=== PATIENT | female | born 1985 | race Caucasian/White ===

== ENCOUNTER 2020-09-15 16:26 | Emergency (ER) | payer BC, MEDICAID ==
[2020-09-15] MEDS ORDERED: Ketorolac 30 MG/ML SDV IVPUSH ONE (16:51)
[2020-09-15] MEDS ORDERED: Lactated Ringers 1,000 ML IV ONE (16:51)
[2020-09-15] MEDS ORDERED: Sodium Chloride 0.9% 10 ML Syringe FLUSH PRN (16:52)
[2020-09-15] MEDS ORDERED: diphenhydrAMINE 50 MG/ML SDV IVPUSH ONE (16:52)
[2020-09-15] MEDS ORDERED: Prochlorperazine 10 MG/2 ML SDV IVPUSH ONE (16:52)
--- NOTE | 2020-09-15 16:54 | EDM.PDOC ---
ED HPI GENERAL MEDICAL PROBLEM - General Chief Complaint: Headache Stated Complaint: MIGRAINE Time Seen by Provider: 09/15/20 16:48 Source of Information: Reports: Patient, RN Notes Reviewed History Limitations: Reports: No Limitations - History of Present Illness INITIAL COMMENTS - FREE TEXT/NARRATIVE: 35-year-old female presents emergency department a complaint of migraine type headache, she states this is typical for her migraine usually when things get this bad she does need emergency room care and treatment. Complains of nausea as well as photophobia usually uses Imitrex at home - Related Data Allergies Allergy/AdvReac Type Severity Reaction Status Date / Time cephalexin [From Keflex] Allergy Edema Verified 09/15/20 16:39 sulfamethoxazole Allergy Edema Verified 09/15/20 16:39 [From Bactrim] trimethoprim [From Bactrim] Allergy Edema Verified 09/15/20 16:39 Home Meds: Home Meds FLUoxetine HCl [Prozac] 09/15/20 [History] Ondansetron [Zofran ODT] 09/15/20 [History] SUMAtriptan [Imitrex] 09/15/20 [History] Topiramate [Topamax] 09/15/20 [History] Past Medical History Neurological History: Reports: Migraines Social & Family History - Tobacco Use Tobacco Use Status *Q: Never Tobacco User ED ROS GENERAL - Review of Systems Review Of Systems: See Below Constitutional: Reports: No Symptoms HEENT: Reports: Eye Pain Respiratory: Reports: No Symptoms Cardiovascular: Reports: No Symptoms Neurological: Reports: Headache - Physical Exam Exam: See Below Exam Limited By: No Limitations General Appearance: Alert, Mild Distress Eye Exam: Bilateral Eye: EOMI, Normal Fundi, Normal Inspection, PERRL Respiratory/Chest: No Respiratory Distress Course - Vital Signs Last Recorded V/S: Last Vital Signs Temp 97.2 F 09/15/20 16:45 Pulse 51 L 09/15/20 16:45 Resp 14 09/15/20 16:45 BP 123/67 09/15/20 16:45 Pulse Ox 98 09/15/20 16:45 - Orders/Labs/Meds Orders: Active Orders 24 hr Category Date Time Status Peripheral IV Care [RC] . DIRECTED Care 09/15/20 16:52 Active Sodium Chloride 0.9% [Saline Flush] Med 09/15/20 16:52 Active 10 ml FLUSH ASDIRECTED PRN Peripheral IV Insertion Adult [OM.PC] Urgent Oth 09/15/20 16:51 Ordered Medication Orders Sodium Chloride (Saline Flush) 10 ml FLUSH ASDIRECTED PRN PRN Reason: Keep Vein Open Last Admin: 09/15/20 17:26 Dose: 10 ml Documented by: ANA Meds: Medications Generic Name Dose Route Start Last Admin Trade Name Freq PRN Reason Stop Dose Admin Sodium Chloride 10 ml 09/15/20 16:52 09/15/20 17:26 Saline Flush FLUSH 10 ml ASDIRECTED PRN Administration Keep Vein Open Discontinued Medications Generic Name Dose Route Start Last Admin Trade Name Freq PRN Reason Stop Dose Admin Diphenhydramine HCl 25 mg 09/15/20 16:52 09/15/20 17:26 Benadryl IVPUSH 09/15/20 16:53 25 mg ONETIME ONE Administration Lactated Ringer's 1,000 mls @ 999 mls/hr 09/15/20 16:51 09/15/20 17:27 Ringers, Lactated IV 09/15/20 17:51 999 mls/hr BOLUS ONE Administration Ketorolac Tromethamine 30 mg 09/15/20 16:51 09/15/20 17:26 Toradol IVPUSH 09/15/20 16:52 30 mg ONETIME ONE Administration Prochlorperazine Edisylate 5 mg 09/15/20 16:52 09/15/20 17:27 Compazine IVPUSH 09/15/20 16:53 5 mg ONETIME ONE Administration Departure - Departure Time of Disposition: 18:11 Disposition: Home, Self-Care 01 Condition: Fair Clinical Impression: Migraine Qualifiers: Migraine type: unspecified Status migrainosus presence: without status migrainosus Intractability: not intractable Qualified Code(s): G43.909 - Migraine, unspecified, not intractable, without status migrainosus - Discharge Information Instructions: Migraine Headache, [id number] Referrals: PCP,None [Primary Care Provider] - Forms: ED Department Discharge Additional Instructions: Continue with your regular medications, please follow-up with your primary care upon return home if not better with worsening of symptoms please return to the emergency Sepsis Event Note (ED) - Evaluation Sepsis Screening Result: No Definite Risk - Focused Exam Vital Signs: Vital Signs Temp Pulse Resp BP Pulse Ox 09/15/20 16:45 97.2 F 51 L 14 123/67 98 - My Orders Last 24 Hours: My Active Orders 09/15/20 16:51 Peripheral IV Insertion Adult [OM.PC] Urgent 09/15/20 16:52 Peripheral IV Care [RC] . DIRECTED Sodium Chloride 0.9% [Saline Flush] 10 ml FLUSH ASDIRECTED PRN - Assessment/Plan Last 24 Hours: My Active Orders 09/15/20 16:51 Peripheral IV Insertion Adult [OM.PC] Urgent 09/15/20 16:52 Peripheral IV Care [RC] . DIRECTED Sodium Chloride 0.9% [Saline Flush] 10 ml FLUSH ASDIRECTED PRN Plan: Assessment Acuity = acute Site and laterality = migraine Etiology = unknown Manifestations = none Location of injury = Home Lab values = none Plan Good improvement combination Toradol, Compazine and Benadryl with 1 L fluids discharged home follow-up primary care Return home This note was dictated using [employer] voice recognition software please call with any questions on syntax or grammar.
== END 2020-09-15 19:20 | disposition home or self-care (01) ==
LOC: JP.ED 16:26
DX: G43.909 Migraine, unspecified, not intractable, without status migrainosus (principal); Z88.1 Allergy status to other antibiotic agents; Z88.2 Allergy status to sulfonamides; Z79.899 Other long term (current) drug therapy
CPT/HCPCS: 96374; 96375; 99283; J0780; J1200; J1885; J7120; 99284